=== PATIENT | male | born 1965 | race Asian ===

== ENCOUNTER 2017-09-28 07:11 | Emergency (ER) | payer BC ==
[~2017-09-28] VITALS: Ht 167.6 cm; Wt 80.0 kg
[2017-09-28] MEDS ORDERED: IBUPROFEN 600MG TABLET PO ONE (10:30)
[2017-09-28 11:40] VITALS: BP 140/92
== END 2017-09-28 11:59 | disposition home or self-care (01) ==
LOC: ER 07:14
DX: M54.2 Cervicalgia (principal); R07.81 Pleurodynia; M25.561 Pain in right knee; V89.2XXA Person injured in unspecified motor-vehicle accident, traffic, initial encounter; Y93.89 Activity, other specified; Y92.89 Other specified places as the place of occurrence of the external cause; Y99.8 Other external cause status
CPT/HCPCS: 71045; 72125; 73562; 99284